=== PATIENT | female | born 1985 ===

== ENCOUNTER 2023-09-16 06:23 | Inpatient (IN) | payer OTHER ==
[~2023-09-16] VITALS: Ht 167.6 cm; Wt 70.3 kg
[2023-09-16] MEDS ORDERED: ZOFRAN8 MG PO (10:18)
[2023-09-16] MEDS ORDERED: PRENATABS RX T1 EACH PO (10:18)
[2023-09-16 10:34] LABS: HEMATOCRIT 34.5 % (36.0-45.00); MEAN CELL VOLUME 90.7 fL (80.00-100.00); MEAN CORPUSCULAR HEMOGLOBIN 31.6 pg (27.00-32.0); MEAN CORPUSCULAR HGB CONC 34.9 g/dl (32.0-36.0); PH,URINE 6.5 (5.0-8.0); PLATELET COUNT 194 K/uL (150-450); RED CELL DISTRIBUTION WIDTH 13.2 % (11.5-14.5); URINE APPEARANCE Clear; URINE BILIRRUBIN Negative (NEGATIVE); URINE BLOOD Negative; URINE COLOR Yellow; URINE LEUKOCYTE Small; URINE NITRATE Negative; URINE PROTEIN Negative (NEGATIVE)
[2023-09-16 10:39] LABS: URINE BACTERIA 1331.7 uL (0.0-1933); URINE EPITHELIAL CELLS 16.6 uL (0.0-38.8); URINE RBC 5.6 uL (0.0-20.8)
[2023-09-16 11:18] LABS: BILIRUBIN TOTAL 0.51 mg/dL (0.3-1.2); CREATININE SERUM 0.75 mg/dL (0.55-1.02); GFR 87.43; GLOBULINA 3.4 G/DL (2.4-3.5); POTASSIUM 4.05 mEq/L (3.5-5.1); TOTAL PROTEIN 6.4 gm/dL (6.4-8.2)
[2023-09-16 11:19] LABS: INR < 0.93; PARTIAL THROMBOPLASTIN TIME 26.8 SECONDS (22.0-34.0); PROTHROMBIN TIME 9.8 SECONDS (9.0-11.5)
[2023-09-16 11:52] LABS: URINE GLUCOSE 100 MG/DL (NEGATIVE)
[2023-09-16 22:27] LABS: ABG PH 7.293 (7.35-7.45); ABG pCO2 42.2 mmHg (35-45); BASE EXCESS -6.3 mmol/l; SaO2 59.2 %; Tco2 21.3 mmol/l; o2 21 %
[2023-09-16 22:28] LABS: ABG PO2 35.5 mmHg (80-100)
== END 2023-09-18 14:21 | disposition home or self-care (01) | DRG 807 ==
LOC: LDR 06:23 → OB/GYN 06:23 → LDR 08:18 → OB/GYN 09-17 09:09
PROVIDERS: ADMIT Specialist; ATTEND Specialist
PROC: 10E0XZZ Delivery of Products of Conception, External Approach (ICD-10-PCS; principal; 2023-09-16)
PROC: 4A1HXCZ Monitoring of Products of Conception, Cardiac Rate, External Approach (ICD-10-PCS; 2023-09-16)
DX: O99.824 Streptococcus B carrier state complicating childbirth (principal); Z37.0 Single live birth; Z3A.39 39 weeks gestation of pregnancy; Z20.822 Contact with and (suspected) exposure to COVID-19